=== PATIENT | female | born 1940 | race Native Hawaiian/Other Pacific Islander ===

== ENCOUNTER 2019-03-23 15:27 | Emergency (ER) | payer OTHER ==
[~2019-03-23] VITALS: Ht 177.8 cm; Wt 82.7 kg
[2019-03-23 15:27] VITALS: BP 137/60; TEMP 98.8
[2019-03-23 16:31] LABS: PLATELET COUNT 154 K/uL (152-353)
[2019-03-23 16:35] LABS: POTASSIUM 3.4 mmol/L (3.6-5.2)
[2019-03-23] MEDS ORDERED: ALPR0.2566 PO (17:15)
[2019-03-23] MEDS ORDERED: ASA LOW STR81 MG PO (17:16)
[2019-03-23] MEDS ORDERED: DIVALPROEX125 MG PO (17:17)
[2019-03-23] MEDS ORDERED: DONE5TAB PO (17:18)
[2019-03-23] MEDS ORDERED: FINA5TAB2 PO (17:20)
[2019-03-23] MEDS ORDERED: FINGERSTIX (17:21)
[2019-03-23] MEDS ORDERED: HUMULIN R100 UNIT/M IM (17:22)
[2019-03-23] MEDS ORDERED: LEVO0.1224 PO ×2 (17:24→17:29)
[2019-03-23] MEDS ORDERED: HYZAAR1 TA2 PO (17:30)
[2019-03-23] MEDS ORDERED: OMEPRAZOLE40 MG PO (17:31)
[2019-03-23] MEDS ORDERED: QUET25TA2 PO ×2 (17:32→17:34)
[2019-03-23] MEDS ORDERED: TAMS0.4C PO (17:36)
[2019-03-23] MEDS ORDERED: LEVO-T175 MCG PO ×2 (17:42→17:44)
[2019-04-04] MEDS ORDERED: ESCI10TA PO (15:35)
[2019-04-04] MEDS ORDERED: MEMA5TAB PO (15:35)
[2019-04-04] MEDS ORDERED: BUSP5TAB2 PO (15:36)
== END 2019-03-23 18:50 | disposition other institution (70) ==
LOC: EDSEX 15:56 → ED 15:56
PROVIDERS: Family Medicine
DX: R46.89 Other symptoms and signs involving appearance and behavior (principal); F22 Delusional disorders; Z04.6 Encounter for general psychiatric examination, requested by authority
CPT/HCPCS: 80053; 81000; 85027; 93005; 99285